=== PATIENT | female | born 1995 | race Two or more races ===

== ENCOUNTER 2019-07-31 08:39 | Emergency (ER) | payer MEDICAID ==
--- NOTE | 2019-07-31 10:00 | EDM.PDOC ---
ED HPI GENERAL MEDICAL PROBLEM - General Stated Complaint: L SHOULDER PAIN Time Seen by Provider: 07/31/19 08:55 Source of Information: Reports: Patient History Limitations: Reports: No Limitations - History of Present Illness INITIAL COMMENTS - FREE TEXT/NARRATIVE: Patient presented to the ED because of left shoulder pain. 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 The pain is sharp 6/10 and is worse with movements. Left Shoulder Pain Score (Numeric/FACES): 7 - Related Data Allergies Allergy/AdvReac Type Severity Reaction Status Date / Time No Known Allergies Allergy Verified 07/31/19 17:11 Home Meds: Home Meds Cyclobenzaprine [Flexeril] 10 mg PO TID PRN #20 tab 07/31/19 [Rx] Ibuprofen 800 mg PO TID PRN #30 tablet 07/31/19 [Rx] Review of Systems - Review of Systems Review Of Systems: See Below Constitutional: Reports: No Symptoms Eyes: Reports: No Symptoms Ears: Reports: No Symptoms Nose: Reports: No Symptoms Mouth/Throat: Reports: No Symptoms Respiratory: Reports: No Symptoms Cardiovascular: Reports: No Symptoms GI/Abdominal: Reports: No Symptoms Genitourinary: Reports: No Symptoms Musculoskeletal: Reports: Shoulder Pain, Arm Pain Skin: Reports: No Symptoms Neurological: Reports: No Symptoms ED EXAM, GENERAL - Physical Exam Exam: See Below Exam Limited By: No Limitations General Appearance: Alert, No Apparent Distress Ears: Normal External Exam, Normal Canal Nose: Normal Inspection, Normal Mucosa, Nasal Flaring Throat/Mouth: Normal Lips Head: Atraumatic, Normocephalic Neck: Normal Inspection, Supple, Non-Tender Respiratory/Chest: No Respiratory Distress, Lungs Clear, Normal Breath Sounds, No Accessory Muscle Use, Chest Non-Tender Cardiovascular: Normal Peripheral Pulses, Regular Rate, Rhythm, No Edema, No Gallop GI/Abdominal: Normal Bowel Sounds, Soft, Non-Tender, No Organomegaly, No Distention, No Abnormal Bruit, No Mass, Pelvis Stable Rectal (Female) Exam: Normal Exam Back Exam: Normal Inspection, Full Range of Motion Extremities: Normal Inspection, Other (tenderness left shoulder,AC jont and trapezius muscle area) Neurological: Alert, Oriented, CN II-XII Intact, Normal Cognition, Normal Gait, Normal Reflexes, No Motor/Sensory Deficits Course - Vital Signs Text/Narrative:: reassurance Last Recorded V/S: Last Vital Signs Temp 36.7 C 07/31/19 08:39 Pulse 84 07/31/19 08:39 Resp 16 07/31/19 08:39 BP 100/60 07/31/19 08:39 Pulse Ox 98 07/31/19 08:39 Departure - Departure Time of Disposition: 09:55 Disposition: Home, Self-Care 01 Condition: Good Clinical Impression: Left shoulder strain - Discharge Information Prescriptions: Cyclobenzaprine [Flexeril] 10 mg PO TID PRN #20 tab PRN Reason: Spasms Ibuprofen 800 mg PO TID PRN #30 tablet PRN Reason: Pain Instructions: Shoulder Sprain Referrals: PCP,None [Primary Care Provider] - Forms: ED Department Discharge Additional Instructions: please read discharge instructions on shoulder sprain apply ice or heat whichever you prefertake ibuprofen 800 mg with tylenol 1000 mg every 8 hours as needed for pain flexeril 10 mg every 8 hours as needed for muscle spasm Take the ibuprofen,tylenol and flexeril all at the same time for better pain relief follow up[ as needed Sepsis Event Note - Focused Exam Date Exam was Performed: 08/01/19 Time Exam was Performed: 08:28
== END 2019-07-31 10:28 | disposition home or self-care (01) ==
LOC: FB.ED 08:39
DX: S46.912A Strain of unspecified muscle, fascia and tendon at shoulder and upper arm level, left arm, initial encounter (principal); Z79.899 Other long term (current) drug therapy; X50.0XXA Overexertion from strenuous movement or load, initial encounter; Y99.0 Civilian activity done for income or pay
CPT/HCPCS: 99283

== ENCOUNTER 2019-08-14 21:17 | Emergency (ER) | payer MEDICAID ==
--- NOTE | 2019-08-14 21:58 | EDM.PDOC ---
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 Her L shoulder pain has recovered, and she can perform all tasks essential to her job. She is taking no meds. - Related Data Allergies Allergy/AdvReac Type Severity Reaction Status Date / Time No Known Allergies Allergy Verified 07/31/19 17:11 Home Meds: Home Meds Cyclobenzaprine [Flexeril] 10 mg PO TID PRN #20 tab 07/31/19 [Rx] Ibuprofen 800 mg PO TID PRN #30 tablet 07/31/19 [Rx] Past Medical History - Past Health History Medical/Surgical History: Denies Medical/Surgical History Social & Family History - Family History Family Medical History: Noncontributory - Caffeine Use Caffeine Use: Reports: Energy Drinks, Soda Review of Systems - Review of Systems Review Of Systems: Comprehensive ROS is negative, except as noted in HPI. ED EXAM, GENERAL - Physical Exam Exam: See Below Exam Limited By: No Limitations General Appearance: Alert, WD/WN, No Apparent Distress Head: Normocephalic Neck: Normal Inspection, Supple, Non-Tender, Full Range of Motion Respiratory/Chest: Lungs Clear, Chest Non-Tender Cardiovascular: Regular Rate, Rhythm, No Murmur Back Exam: Normal Inspection Extremities: Normal Inspection, Normal Range of Motion, Non-Tender Neurological: Alert, Oriented, CN II-XII Intact, Normal Cognition, No Motor/ Sensory Deficits Psychiatric: Normal Affect, Normal Mood Skin Exam: Warm, Dry Lymphatic: No Adenopathy Course - Vital Signs Text/Narrative:: Normal RTW exam. Departure - Departure Time of Disposition: 21:50 Disposition: Home, Self-Care 01 Condition: Good Clinical Impression: Left shoulder strain Qualifiers: Encounter type: subsequent encounter Qualified Code(s): S46.912D - Strain of unspecified muscle, fascia and tendon at shoulder and upper arm level, left arm , subsequent encounter - Discharge Information *PRESCRIPTION DRUG MONITORING PROGRAM REVIEWED*: Not Applicable *COPY OF PRESCRIPTION DRUG MONITORING REPORT IN PATIENT LATISHA: Not Applicable Forms: ED Department Discharge - Problem List & Annotations (1) Left shoulder strain SNOMED Code(s): 038506644 Code(s): S46.912A - STRAIN UNSP MUSC/FASC/TEND AT SHLDR/UP ARM, LEFT ARM, INIT Status: Acute Current Visit: Yes Annotation/Comment:: Activity as tolerated. No meds required. Qualifiers: Encounter type: subsequent encounter Qualified Code(s): S46.912D - Strain of unspecified muscle, fascia and tendon at shoulder and upper arm level, left arm, subsequent encounter - Problem List Review Problem List Initiated/Reviewed/Updated: Yes - Assessment/Plan Plan: A note for work was provided.
== END 2019-08-14 22:00 | disposition home or self-care (01) ==
LOC: FB.ED 21:17
DX: S46.912D Strain of unspecified muscle, fascia and tendon at shoulder and upper arm level, left arm, subsequent encounter (principal); X58.XXXD Exposure to other specified factors, subsequent encounter; Y99.0 Civilian activity done for income or pay
CPT/HCPCS: 99283

== ENCOUNTER 2020-08-22 02:26 | Emergency (ER) | payer MEDICAID ==
[2020-08-22] MEDS ORDERED: Sodium Chloride 0.9% 10 ML Syringe FLUSH PRN (02:50)
[2020-08-22] MEDS ORDERED: Morphine 4 MG/ML VIAL IVPUSH ONE (02:52)
[2020-08-22] MEDS ORDERED: Ondansetron 4 MG/2 ML SDV IVPUSH ONE (02:53)
[2020-08-22] MEDS ORDERED: Ketorolac 30 MG/ML SDV IVPUSH ONE (02:55)
[2020-08-22] MEDS ORDERED: Sodium Chloride 0.9% 1,000 ML IV SCH (03:00)
[2020-08-22] MEDS ORDERED: Iopamidol 755 Mg/ML 100 ML Bottle IV ONE (03:27)
[2020-08-22] MEDS ORDERED: Potassium Chloride 20 MEQ Tab.ER PO ONE (03:55)
--- NOTE | 2020-08-22 03:55 | EDM.PDOC ---
ED HPI GENERAL MEDICAL PROBLEM - General Chief Complaint: Abdominal Pain Stated Complaint: ABDOMINAL PAIN Time Seen by Provider: 08/22/20 03:00 Source of Information: Reports: Patient History Limitations: Reports: No Limitations - History of Present Illness INITIAL COMMENTS - FREE TEXT/NARRATIVE: Patient presented to the ED because of abdominal pain which started at 0100. The pain is sharp and cramping, diffuse, 7/10 with associated nausea but no vomiting. There is no associated fever,chills, cough or cold symptoms. Denies any dysuria, urgency, or frequency. She laso c/o dental pain over the right lower wisdom tooth. She took Ibuprofen w/o relief. 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 - Infectious Disease History Infectious Disease History: Reports: Chicken Pox, Influenza - Past Surgical History HEENT Surgical History: Reports: None Dermatological Surgical History: Reports: None Social & Family History - Family History Family Medical History: No Pertinent Family History - Tobacco Use Tobacco Use Status *Q: Current Every Day Tobacco User Years of Tobacco use: 8 Packs/Tins Daily: 1 - Caffeine Use Caffeine Use: Reports: Coffee - Recreational Drug Use Recreational Drug Use: Yes Drug Use in Last 12 Months: No Recreational Drug Type: Reports: Methamphetamine Recreational Drug Use Frequency: Not Used In Over 6 Months Recreational Drug Last Use: 2019 ED ROS GENERAL - Review of Systems Review Of Systems: See Below Constitutional: Reports: No Symptoms HEENT: Reports: No Symptoms Respiratory: Reports: No Symptoms Cardiovascular: Reports: No Symptoms Endocrine: Reports: No Symptoms GI/Abdominal: Reports: Abdominal Pain : Reports: No Symptoms Musculoskeletal: Reports: No Symptoms Skin: Reports: No Symptoms Neurological: Reports: No Symptoms Psychiatric: Reports: No Symptoms ED EXAM, GI/ABD - Physical Exam Exam: See Below Exam Limited By: No Limitations General Appearance: Alert, No Apparent Distress Ears: Normal External Exam, Normal Canal Nose: Normal Inspection, Normal Mucosa Throat/Mouth: Other (dental cavity) Head: Atraumatic, Normocephalic Neck: Normal Inspection, Supple, Non-Tender, Full Range of Motion Respiratory/Chest: No Respiratory Distress, Lungs Clear, Normal Breath Sounds Cardiovascular: Normal Peripheral Pulses, Regular Rate, Rhythm, No Edema GI/Abdominal Exam: Normal Bowel Sounds, Soft, Other (diffusely tender, no rebound or guarding) Back Exam: Normal Inspection, Full Range of Motion Extremities: Normal Inspection, Normal Range of Motion Neurological: Alert, Oriented, CN II-XII Intact Course - Vital Signs Text/Narrative:: Labs/CT abd/pelvis result was discussed with patient NS 1 L bolus Zofran 4 mg IV x1 Klor con 40 meq po x1 Viscous lidocaine applied to rt lowe wisdom tooth Last Recorded V/S: Last Vital Signs Temp 36.4 C 08/22/20 02:26 Pulse 62 08/22/20 02:26 Resp 18 08/22/20 02:26 BP 112/74 08/22/20 02:26 Pulse Ox 100 08/22/20 02:26 - Orders/Labs/Meds Orders: Active Orders 24 hr Category Date Time Status Abdomen Pelvis w Cont [CT] Stat Exams 08/22/20 03:22 Taken Sodium Chloride 0.9% [Normal Saline] 1,000 ml Med 08/22/20 03:00 Active IV ASDIRECTED Sodium Chloride 0.9% [Saline Flush] Med 08/22/20 02:50 Active 10 ml FLUSH ASDIRECTED PRN Saline Lock Insert [OM.PC] Routine Oth 08/22/20 02:50 Ordered Medication Orders Sodium Chloride (Normal Saline) 1,000 mls @ 999 mls/hr IV ASDIRECTED CHELSIE Last Admin: 08/22/20 03:00 Dose: 999 mls/hr Documented by: BREE Sodium Chloride (Saline Flush) 10 ml FLUSH ASDIRECTED PRN PRN Reason: Keep Vein Open Last Admin: 08/22/20 03:05 Dose: 10 ml Documented by: BREE Labs: Laboratory Tests 08/22/20 08/22/20 08/22/20 Range/Units 02:50 02:50 02:50 WBC 9.5 (3.0-10.3) x10-3/uL RBC 4.39 (3.60-5.20) x10(6)uL Hgb 12.4 (11.4-15.5) g/dL Hct 38.3 (34.2-48.2) % MCV 87.3 (76.7-100.5) fL MCH 28.2 (23.9-33.9) pg MCHC 32.3 (31.9-34.8) g/dL RDW 13.2 (12.3-16.5) % Plt Count 284 (151-488) x10(3)uL MPV 7.4 (7.1-12.4) fL Neut % (Auto) 65.7 (30.8-76.2) % Lymph % (Auto) 25.6 (18.4-52.1) % [place] % (Auto) 6.4 (4.4-15.7) % Eos % (Auto) 1.9 (0.6-8.1) % Baso % (Auto) 0.4 (0.2-1.5) % Neut # (Auto) 6.3 (1.5-6.3) x10-3/uL Lymph # (Auto) 2.4 (1.0-4.4) x10-3/uL [place] # (Auto) 0.6 (0.3-1.0) x10-3/uL Eos # (Auto) 0.2 (0.0-0.8) x10-3/uL Baso # (Auto) 0.0 (0.0-0.1) x10-3/uL Sodium 140 (135-145) mmol/L Potassium 3.3 L (3.5-5.3) mmol/L Chloride 103 (100-110) mmol/L Carbon Dioxide 27 (21-32) mmol/L BUN 12 (7-18) mg/dL Creatinine 0.9 (0.55-1.02) mg/dL Est Cr Clr Drug Dosing 74.92 mL/min Estimated GFR (MDRD) > 60 (>60) BUN/Creatinine Ratio 13.3 (9-20) Glucose 92 (80-116) mg/dL Calcium 7.9 L (8.6-10.2) mg/dL Total Bilirubin 0.3 (0.1-1.3) mg/dL AST 13 (5-25) IU/L ALT 14 (12-36) U/L Alkaline Phosphatase 99 (56-112) IU/L Total Protein 6.8 (6.0-8.0) g/dL Albumin 3.7 (3.5-5.2) g/dL Globulin 3.1 g/dL Albumin/Globulin Ratio 1.2 Amylase 36 (25-115) U/L Lipase 88 (73-393) U/L Urine Color (YELLOW) Urine Appearance (CLEAR) Urine pH (5.0-6.5) Ur Specific [place] (1.010-1.025) Urine Protein (NEGATIVE) mg/dL Urine Glucose (UA) (NORMAL) mg/dL Urine Ketones (NEGATIVE) mg/dL Urine Occult Blood (NEGATIVE) Urine Nitrite (NEGATIVE) Urine Bilirubin (NEGATIVE) Urine Urobilinogen (NEGATIVE) mg/dL Ur Leukocyte Esterase (NEGATIVE) Urine RBC (0-5) Urine WBC (0-5) Ur Squamous Epith Cells (NS,R,O) Urine Bacteria (NS) Urine Mucus (NS) Urine HCG, Qual (NEGATIVE) 08/22/20 08/22/20 Range/Units 03:00 03:00 WBC (3.0-10.3) x10-3/uL RBC (3.60-5.20) x10(6)uL Hgb (11.4-15.5) g/dL Hct (34.2-48.2) % MCV (76.7-100.5) fL MCH (23.9-33.9) pg MCHC (31.9-34.8) g/dL RDW (12.3-16.5) % Plt Count (151-488) x10(3)uL MPV (7.1-12.4) fL Neut % (Auto) (30.8-76.2) % Lymph % (Auto) (18.4-52.1) % [place] % (Auto) (4.4-15.7) % Eos % (Auto) (0.6-8.1) % Baso % (Auto) (0.2-1.5) % Neut # (Auto) (1.5-6.3) x10-3/uL Lymph # (Auto) (1.0-4.4) x10-3/uL [place] # (Auto) (0.3-1.0) x10-3/uL Eos # (Auto) (0.0-0.8) x10-3/uL Baso # (Auto) (0.0-0.1) x10-3/uL Sodium (135-145) mmol/L Potassium (3.5-5.3) mmol/L Chloride (100-110) mmol/L Carbon Dioxide (21-32) mmol/L BUN (7-18) mg/dL Creatinine (0.55-1.02) mg/dL Est Cr Clr Drug Dosing mL/min Estimated GFR (MDRD) (>60) BUN/Creatinine Ratio (9-20) Glucose (80-116) mg/dL Calcium (8.6-10.2) mg/dL Total Bilirubin (0.1-1.3) mg/dL AST (5-25) IU/L ALT (12-36) U/L Alkaline Phosphatase (56-112) IU/L Total Protein (6.0-8.0) g/dL Albumin (3.5-5.2) g/dL Globulin g/dL Albumin/Globulin Ratio Amylase (25-115) U/L Lipase (73-393) U/L Urine Color Yellow (YELLOW) Urine Appearance Slightly cloudy (CLEAR) Urine pH 7.0 H (5.0-6.5) Ur Specific [place] 1.015 (1.010-1.025) Urine Protein Negative (NEGATIVE) mg/dL Urine Glucose (UA) Normal (NORMAL) mg/dL Urine Ketones Negative (NEGATIVE) mg/dL Urine Occult Blood Negative (NEGATIVE) Urine Nitrite Negative (NEGATIVE) Urine Bilirubin Negative (NEGATIVE) Urine Urobilinogen Normal (NEGATIVE) mg/dL Ur Leukocyte Esterase Negative (NEGATIVE) Urine RBC 0-5 (0-5) Urine WBC 0-5 (0-5) Ur Squamous Epith Cells Few H (NS,R,O) Urine Bacteria Few H (NS) Urine Mucus Few H (NS) Urine HCG, Qual Negative (NEGATIVE) Meds: Medications Generic Name Dose Route Start Last Admin Trade Name Freq PRN Reason Stop Dose Admin Sodium Chloride 1,000 mls @ 999 mls/hr 08/22/20 03:00 08/22/20 03:00 Normal Saline IV 999 mls/hr ASDIRECTED CHELSIE Administration Sodium Chloride 10 ml 08/22/20 02:50 08/22/20 03:05 Saline Flush FLUSH 10 ml ASDIRECTED PRN Administration Keep Vein Open Discontinued Medications Generic Name Dose Route Start Last Admin Trade Name Gary PRN Reason Stop Dose Admin Iopamidol 100 ml 08/22/20 03:27 08/22/20 03:35 Isovue-370 (76%) IV 08/22/20 03:28 77 ml . DIRECTED ONE Administration Ketorolac Tromethamine 30 mg 08/22/20 02:55 08/22/20 03:11 Toradol IVPUSH 08/22/20 02:56 30 mg ONETIME ONE Administration Lidocaine HCl 15 ml 08/22/20 04:04 08/22/20 04:07 Xylocaine 2% Viscous PO 08/22/20 04:05 15 ml ONETIME ONE Administration Morphine Sulfate 4 mg 08/22/20 02:52 08/22/20 03:07 Morphine IVPUSH 08/22/20 02:53 Not Given ONETIME ONE Ondansetron HCl 4 mg 08/22/20 02:53 08/22/20 03:06 Zofran IVPUSH 08/22/20 02:54 4 mg ONETIME ONE Administration Potassium Chloride 40 meq 08/22/20 03:55 08/22/20 04:01 Klor-Con M20 PO 08/22/20 03:56 40 meq ONETIME ONE Administration Departure - Departure Time of Disposition: 05:00 Disposition: Home, Self-Care 01 Condition: Good Clinical Impression: Abdominal pain, Hypokalemia, Chronic dental pain - Discharge Information Instructions: Hypokalemia, Abdominal Pain, Adult, [id number], Benzocaine mouth gel, ointment, solution, or dental paste Referrals: PCP,None [Primary Care Provider] - Forms: ED Department Discharge Additional Instructions: Please read discharge instructions on abdominal pain Take ibuprofen 800 mg with tylenol 1000 mg every 8 hours as needed for pain. Take these medicines with food because they can cause an upset stomach. Apply the viscous lidocaine for pain that you can't tolerate Follow up with your dentist Sepsis Event Note (ED) - Evaluation Sepsis Screening Result: No Definite Risk - Focused Exam Vital Signs: Vital Signs Temp Pulse Resp BP Pulse Ox 08/22/20 02:26 36.4 C 62 18 112/74 100 - My Orders Last 24 Hours: My Active Orders 08/22/20 02:50 Sodium Chloride 0.9% [Saline Flush] 10 ml FLUSH ASDIRECTED PRN Saline Lock Insert [OM.PC] Routine 08/22/20 03:00 Sodium Chloride 0.9% [Normal Saline] 1,000 ml IV ASDIRECTED 08/22/20 03:22 Abdomen Pelvis w Cont [CT] Stat - Assessment/Plan Last 24 Hours: My Active Orders 08/22/20 02:50 Sodium Chloride 0.9% [Saline Flush] 10 ml FLUSH ASDIRECTED PRN Saline Lock Insert [OM.PC] Routine 08/22/20 03:00 Sodium Chloride 0.9% [Normal Saline] 1,000 ml IV ASDIRECTED 08/22/20 03:22 Abdomen Pelvis w Cont [CT] Stat
[2020-08-22] MEDS ORDERED: Lidocaine 2% Viscous Solution 15 ML Cup PO ONE (04:04)
== END 2020-08-22 05:29 | disposition home or self-care (01) ==
LOC: FB.ED 02:26
DX: R10.84 Generalized abdominal pain (principal); E87.6 Hypokalemia; K08.89 Other specified disorders of teeth and supporting structures; G89.29 Other chronic pain; F17.210 Nicotine dependence, cigarettes, uncomplicated
CPT/HCPCS: 36415; 74177; 80053; 81001; 81025; 82150; 83690; 85025; 96374; 96375; 99284; 99284-25; A9270-GY; J1885; J2405; J7030; Q9967

== ENCOUNTER 2020-08-26 02:04 | Emergency (ER) | payer MEDICAID ==
[2020-08-26] MEDS ORDERED: Acetaminophen 500 MG Tab PO ONE (02:52)
[2020-08-26] MEDS ORDERED: Amoxicillin 500 MG Cap PO ONE (02:53)
[2020-08-26] MEDS ORDERED: Lidocaine 2% Viscous Solution 15 ML Cup PO ONE (02:53)
--- NOTE | 2020-08-26 03:00 | EDM.PDOC ---
ED HPI GENERAL MEDICAL PROBLEM - General Chief Complaint: ENT Problem Stated Complaint: TOOTH PAIN Time Seen by Provider: 08/26/20 02:25 Source of Information: Reports: Patient History Limitations: Reports: No Limitations - History of Present Illness INITIAL COMMENTS - FREE TEXT/NARRATIVE: c/o dental pain pt seen in ED 4d ago for sharp abd pain x 4h, w/u showed 1.8 cm L ovarian cyst, that pain subsided pt saw Radha Boyce the next day and was given ketorolac pt also has had dental pain x 2m, 4d ago she was given 2% viscous lido from the ED pt took ketorolac at 8p last night, and ibuprofen 200 mg 6 tabs at 1a, still has pain in the same tooth on the L for the past 2m not had dental pain previously, not on an antbx for the pain, not been seen for the tooth pain except for 4d ago when she came to ED with abd pain works at [employer], working from 3p-10p today h/o meth use in past right side lower tooth Pain Score (Numeric/FACES): 10 - Related Data Allergies Allergy/AdvReac Type Severity Reaction Status Date / Time No Known Allergies Allergy Verified 08/22/20 02:32 Home Meds: Home Meds Cyclobenzaprine [Flexeril] 10 mg PO TID PRN #20 tab 07/31/19 [Rx] Ibuprofen 800 mg PO TID PRN #30 tablet 07/31/19 [Rx] Amoxicillin 500 mg PO TID #21 tab 08/26/20 [Rx] Lidocaine 2% [Xylocaine 2% Viscous] 15 ml PO ASDIRECTED #1 cup 08/26/20 [Rx] Past Medical History - Past Health History Medical/Surgical History: Denies Medical/Surgical History HEENT History: Reports: Impaired Vision, Other (See Below) Other HEENT History: sore right upper molar tooth. 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 - Infectious Disease History Infectious Disease History: Reports: Chicken Pox, Influenza - Past Surgical History HEENT Surgical History: Reports: None Dermatological Surgical History: Reports: None Social & Family History - Family History Family Medical History: No Pertinent Family History - Tobacco Use Tobacco Use Status *Q: Current Every Day Tobacco User Years of Tobacco use: 8 Packs/Tins Daily: 1 - Caffeine Use Caffeine Use: Reports: Coffee ED ROS ENT - Review of Systems Review Of Systems: See Below Constitutional: Reports: No Symptoms HEENT: Reports: Dental Pain Respiratory: Reports: No Symptoms Endocrine: Reports: No Symptoms GI/Abdominal: Reports: No Symptoms : Reports: No Symptoms Musculoskeletal: Reports: No Symptoms Skin: Reports: No Symptoms Neurological: Reports: No Symptoms Psychiatric: Reports: No Symptoms Hematologic/Lymphatic: Reports: No Symptoms Immunologic: Reports: No Symptoms ED EXAM, ENT - Physical Exam Exam: See Below Exam Limited By: No Limitations General Appearance: Alert, WD/WN, Mild Distress Nose: Normal Inspection, Normal Mucousa, No Blood Mouth/Throat: Other (tooth #32 surgically absent, tooth #31 with a large central cavity on biting surface and mildly tender to palp, gingiva not red/swell, cheeck no swell, no LNs, only large ryan observed) Head: Atraumatic, Normocephalic Neck: Normal Inspection, Supple, Non-Tender, Full Range of Motion. No: Lymphadenopathy (R), Lymphadenopathy (L) Respiratory/Chest: No Respiratory Distress Cardiovascular: Regular Rate, Rhythm Course - Vital Signs Last Recorded V/S: Last Vital Signs Temp 36.7 C 08/26/20 02:04 Pulse 76 08/26/20 02:04 Resp 16 08/26/20 02:04 BP 103/72 08/26/20 02:04 Pulse Ox 99 08/26/20 02:04 - Orders/Labs/Meds Orders: Active Orders 24 hr Category Date Time Status Acetaminophen [Tylenol Extra Strength] Med 08/26/20 02:52 Once 1,000 mg PO ONETIME ONE Amoxicillin [Amoxil] Med 08/26/20 02:53 Once 1,000 mg PO ONETIME ONE Lidocaine 2% [Xylocaine 2% Viscous] Med 08/26/20 02:53 Once 15 ml PO ONETIME ONE - Re-Assessments/Exams Free Text/Narrative Re-Assessment/Exam: 08/26/20 03:00 should respond well to antbx, will need to see a dentist Departure - Departure Time of Disposition: 03:02 Disposition: Home, Self-Care 01 Condition: Good Clinical Impression: Pain due to dental caries, Dental abscess - Discharge Information *PRESCRIPTION DRUG MONITORING PROGRAM REVIEWED*: Yes *COPY OF PRESCRIPTION DRUG MONITORING REPORT IN PATIENT LATISHA: Not Applicable Prescriptions: Amoxicillin 500 mg PO TID #21 tab Lidocaine 2% [Xylocaine 2% Viscous] 15 ml PO ASDIRECTED #1 cup Instructions: Dental Abscess Additional Instructions: For pain, take either ketorolac 10 mg 1 tab or ibuprofen 200 mg 3 tabs 4 times a day for 2 days. Take one or the other, not both. For pain, also take acetaminophen 500 mg 2 tabs 2 tabs 4 times a day for 2 days. For infection and swelling, take amoxicillin 500 mg 1 tab 3 times a day for 7 days. For pain, put a thin layer of 2% viscous lidocaine on a cotton ball and bite down every hour as needed. For pain, put ice back on jaw for 10 minutes every hour as needed. For pain, use cold soft food (jello, yogurt, popsicles). Chew on the left side of the mouth. See a dentist as soon as possible. Sepsis Event Note (ED) - Evaluation Sepsis Screening Result: No Definite Risk - Focused Exam Vital Signs: Vital Signs Temp Pulse Resp BP Pulse Ox 08/26/20 02:04 36.7 C 76 16 103/72 99 - My Orders Last 24 Hours: My Active Orders 08/26/20 02:52 Acetaminophen [Tylenol Extra Strength] 1,000 mg PO ONETIME ONE 08/26/20 02:53 Amoxicillin [Amoxil] 1,000 mg PO ONETIME ONE Lidocaine 2% [Xylocaine 2% Viscous] 15 ml PO ONETIME ONE - Assessment/Plan Last 24 Hours: My Active Orders 08/26/20 02:52 Acetaminophen [Tylenol Extra Strength] 1,000 mg PO ONETIME ONE 08/26/20 02:53 Amoxicillin [Amoxil] 1,000 mg PO ONETIME ONE Lidocaine 2% [Xylocaine 2% Viscous] 15 ml PO ONETIME ONE
== END 2020-08-26 03:18 | disposition home or self-care (01) ==
LOC: FB.ED 02:04
DX: K04.7 Periapical abscess without sinus (principal); K02.9 Dental caries, unspecified; F17.210 Nicotine dependence, cigarettes, uncomplicated
CPT/HCPCS: 99282; 99283; A9270

== ENCOUNTER 2020-09-08 01:17 | Emergency (ER) | payer MEDICAID ==
--- NOTE | 2020-09-08 01:40 | EDM.PDOC ---
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 Denies vaginal discharge. Onset Date: 09/07/20 Location: Reports: Pelvis Quality: Reports: Other (burning) Severity: Mild Vaginal Pain Score (Numeric/FACES): 2 - Related Data Allergies Allergy/AdvReac Type Severity Reaction Status Date / Time No Known Allergies Allergy Verified 08/22/20 02:32 Home Meds: Home Meds Cyclobenzaprine [Flexeril] 10 mg PO TID PRN #20 tab 07/31/19 [Rx] Ibuprofen 800 mg PO TID PRN #30 tablet 07/31/19 [Rx] Amoxicillin 500 mg PO TID #21 tab 08/26/20 [Rx] Lidocaine 2% [Xylocaine 2% Viscous] 15 ml PO ASDIRECTED #1 cup 08/26/20 [Rx] Nystatin/Triamcinolone Crm [Mycolog Crm] 1 gm TOP BID 7 Days #30 g 09/08/20 [Rx] Past Medical History HEENT History: Reports: Impaired Vision, Other (See Below) Other HEENT History: sore right upper molar tooth. 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 - Infectious Disease History Infectious Disease History: Reports: Chicken Pox, Influenza - Past Surgical History HEENT Surgical History: Reports: None Dermatological Surgical History: Reports: None Social & Family History - Family History Family Medical History: No Pertinent Family History - Tobacco Use Tobacco Use Status *Q: Current Every Day Tobacco User Years of Tobacco use: 8 Packs/Tins Daily: 0.5 - Caffeine Use Caffeine Use: Reports: Soda - Recreational Drug Use Recreational Drug Use: Yes Drug Use in Last 12 Months: No Recreational Drug Type: Reports: Methamphetamine ED ROS GENERAL - Review of Systems Review Of Systems: Comprehensive ROS is negative, except as noted in HPI. ED EXAM, GENERAL - Physical Exam Exam: See Below Exam Limited By: No Limitations General Appearance: Alert, WD/WN, No Apparent Distress Throat/Mouth: No Airway Compromise Head: Atraumatic, Normocephalic Neck: Full Range of Motion Respiratory/Chest: No Respiratory Distress GI/Abdominal: No Distention (Female) Exam: Other (Mild erythema to bilateral labia majora, no swelling, no lesions, no vaginal discharge noted) Extremities: Normal Range of Motion Neurological: Alert, Normal Cognition Skin Exam: Warm, Dry, Intact Course - Vital Signs Last Recorded V/S: Last Vital Signs Temp 36.8 C 09/08/20 01:25 Pulse 76 09/08/20 01:25 Resp 18 09/08/20 01:25 BP 110/58 L 09/08/20 01:25 Pulse Ox 100 09/08/20 01:25 - Orders/Labs/Meds Orders: Active Orders 24 hr Category Date Time Status Nystatin/Triamcinolone Crm [Mycolog Crm] Med 09/08/20 01:34 Ordered 1 gm TOP BID Medication Orders Nystatin/Triamcinolone Acetonide (Mycolog Crm) 1 gm TOP BID CHELSIE Meds: Medications Generic Name Dose Route Start Last Admin Trade Name Freq PRN Reason Stop Dose Admin Nystatin/Triamcinolone Acetonide 1 gm 09/08/20 01:34 Mycolog Crm TOP BID CHELSIE Departure - Departure Time of Disposition: 01:39 Disposition: Home, Self-Care 01 Clinical Impression: Dermatitis - Discharge Information *PRESCRIPTION DRUG MONITORING PROGRAM REVIEWED*: No *COPY OF PRESCRIPTION DRUG MONITORING REPORT IN PATIENT LATISHA: Not Applicable Prescriptions: Nystatin/Triamcinolone Crm [Mycolog Crm] 1 gm TOP BID 7 Days #30 g Instructions: Rash, Adult, [id number] Additional Instructions: Fill the Mycolog cream prescription and apply twice a day. Follow up with your primary physician in 2-3 days if symptoms don't improve. Sepsis Event Note (ED) - Evaluation Sepsis Screening Result: No Definite Risk - Focused Exam Vital Signs: Vital Signs Temp Pulse Resp BP Pulse Ox 09/08/20 01:25 36.8 C 76 18 110/58 L 100 - My Orders Last 24 Hours: My Active Orders 09/08/20 01:34 Nystatin/Triamcinolone Crm [Mycolog Crm] 1 gm TOP BID - Assessment/Plan Last 24 Hours: My Active Orders 09/08/20 01:34 Nystatin/Triamcinolone Crm [Mycolog Crm] 1 gm TOP BID
== END 2020-09-08 01:49 | disposition home or self-care (01) ==
LOC: FB.ED 01:17
DX: L30.9 Dermatitis, unspecified (principal); Z72.0 Tobacco use
CPT/HCPCS: 99283; A9270-GY

== ENCOUNTER 2020-09-19 00:04 | Emergency (ER) | payer MEDICAID, OTHER ==
[2020-09-19] MEDS ORDERED: Acetaminophen/HYDROcodone 325-5 MG Tab PO STA (00:26)
[2020-09-19] MEDS ORDERED: Ketorolac 60 MG/2 ML SDV IM STA (00:26)
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
== END 2020-09-19 02:00 | disposition home or self-care (01) ==
LOC: FB.ED 00:04
DX: S46.911A Strain of unspecified muscle, fascia and tendon at shoulder and upper arm level, right arm, initial encounter (principal); V48.6XXA Car passenger injured in noncollision transport accident in traffic accident, initial encounter; Y92.410 Unspecified street and highway as the place of occurrence of the external cause
CPT/HCPCS: 73070; 73090; 73130; 96372; 99284; A9270; J1885; 99283

== ENCOUNTER 2020-12-03 16:01 | Emergency (ER) | payer MEDICAID ==
[2020-12-03] MEDS ORDERED: Ondansetron 4 MG Tab.DIS PO ONE (16:02)
--- NOTE | 2020-12-03 16:46 | EDM.PDOC ---
ED HPI GENERAL MEDICAL PROBLEM - General Stated Complaint: VOMITING Time Seen by Provider: 12/03/20 16:40 Source of Information: Reports: Patient History Limitations: Reports: No Limitations - History of Present Illness INITIAL COMMENTS - FREE TEXT/NARRATIVE: 25-year-old female who reports beginning at approximately 4 AM today she developed diarrhea and some left-sided abdominal pain and flank pain. She also reports that she developed vomiting at about 8:52 AM following this and has had vomiting 3. She has had diarrhea 6 or 7. She continues with the abdominal pain and has generalized malaise with feeling hot. She has had no measured fever. She has had no chills. She continues to feel nauseated. The pain in her left abdomen and flank is rated by her as an 8/10. It seems to wax and wane and it is worse with palpation and with movement. He had no appetite today. She has had a little PO intake. She has had no cough or nasal congestion. No sore throat. She does feel somewhat weak and dizzy. It is worse with sitting and standing. She is on oral contraceptive pills but is late for her menstrual period. There are no other associated signs or symptoms. There are no other modifying factors. Onset: Today (Or a.m.) Duration: Getting Worse Location: Reports: Abdomen (Left lower abdomen and flank) Quality: Reports: Ache, Sharp Severity: Moderate (to there) Improves with: Reports: Rest Worsens with: Reports: Other (Palpation.), Movement Context: Reports: Other (Above.) Associated Symptoms: Reports: Loss of Appetite, Nausea/Vomiting, Weakness Treatments DISABILITY ADVOCATE: Reports: Other (see below) (Nothing.) Abdominal Pain Score (Numeric/FACES): 8 - Related Data Allergies Allergy/AdvReac Type Severity Reaction Status Date / Time No Known Allergies Allergy Verified 12/03/20 19:26 Home Meds: Home Meds Desogestrel-Ethinyl Estradiol [Isibloom 28 Day Tablet] 1 each PO DAILY 12/03/20 [History] Ondansetron [Zofran ODT] 4 mg PO Q6H PRN #8 tab.dis 12/03/20 [Rx] Sulfamethoxazole/Trimethoprim [Bactrim Ds Tablet] 1 each PO BID 10 Days #20 tablet 12/03/20 [Rx] Past Medical History HEENT History: Reports: Impaired Vision Psychiatric History: Reports: Addiction 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 - Infectious Disease History Infectious Disease History: Reports: Chicken Pox, Influenza - Past Surgical History Other Surgical History Comment: No previous surgeries. Social & Family History - Tobacco Use Tobacco Use Status *Q: Current Every Day Tobacco User - Caffeine Use Caffeine Use: Reports: Coffee, Energy Drinks, Soda, Tea - Alcohol Use Alcohol Use History: Yes Alcohol Use Frequency: Weekly - Living Situation & Occupation Occupation: Employed (Works at [employer]) Social History Comment: No sick contacts. ED ROS GENERAL - Review of Systems Review Of Systems: See Below Constitutional: Reports: Malaise, Weakness, Decreased Appetite HEENT: Reports: Other (Dry mouth.) Respiratory: Reports: No Symptoms Cardiovascular: Reports: No Symptoms GI/Abdominal: Reports: Abdominal Pain, Diarrhea, Nausea, Vomiting : Reports: Flank Pain (Left flank pain) Musculoskeletal: Reports: Back Pain (Mild left mid back pain) Skin: Reports: No Symptoms Neurological: Reports: No Symptoms Psychiatric: Reports: No Symptoms Hematologic/Lymphatic: Reports: No Symptoms Immunologic: Reports: No Symptoms ED EXAM, GENERAL - Physical Exam Exam: See Below Exam Limited By: No Limitations General Appearance: Alert, WD/WN, Moderate Distress (Appears in some pain.) Eye Exam: Bilateral Eye: EOMI, Normal Inspection (Sclerae are anicteric), PERRL Ears: Normal External Exam, Hearing Grossly Normal Ear Exam: Bilateral Ear: Auricle Normal Nose: Normal Inspection, Normal Mucosa, No Blood Throat/Mouth: Normal Lips, Normal Voice, No Airway Compromise, Other (Dry mucous membranes) Head: Atraumatic, Normocephalic Neck: Normal Inspection, Supple, Non-Tender, Full Range of Motion Respiratory/Chest: No Respiratory Distress, Lungs Clear, Normal Breath Sounds, No Accessory Muscle Use, Chest Non-Tender Cardiovascular: Normal Peripheral Pulses, No Murmur, Tachycardia Peripheral Pulses: 2+: Radial (L), Radial (R), Dorsalis Pedis (L), Dorsalis Pedis (R) GI/Abdominal: Normal Bowel Sounds, Soft, Tender (On the left lower quadrant, left flank area.) Back Exam: Normal Inspection, CVA Tenderness (L) Extremities: Normal Inspection, Normal Range of Motion, Non-Tender, No Pedal Edema, Normal Capillary Refill Neurological: Alert, Oriented, CN II-XII Intact, Normal Cognition, No Motor/Sensory Deficits Skin Exam: Warm, Dry, Intact, Normal Color, No Rash Course - Vital Signs Last Recorded V/S: Last Vital Signs Temp 37.3 C 12/03/20 19:37 Pulse 87 12/03/20 20:28 Resp 18 12/03/20 20:28 BP 120/55 L 12/03/20 20:28 Pulse Ox 100 12/03/20 20:28 - Orders/Labs/Meds Orders: Active Orders 24 hr Category Date Time Status CULTURE URINE [RM] Stat Lab 12/03/20 19:33 Ordered Sodium Chloride 0.9% [Normal Saline] 1,000 ml Med 12/03/20 17:00 Active IV ASDIRECTED Sodium Chloride 0.9% [Saline Flush] Med 12/03/20 16:55 Active 10 ml FLUSH ASDIRECTED PRN Peripheral IV Insertion Adult [OM.PC] Routine Oth 12/03/20 16:55 Ordered Medication Orders Sodium Chloride (Normal Saline) 1,000 mls @ 999 mls/hr IV ASDIRECTED CHELSIE Last Admin: 12/03/20 19:35 Dose: 999 mls/hr Documented by: WESLY Sodium Chloride (Sodium Chloride 0.9% 10 Ml Syringe) 10 ml FLUSH ASDIRECTED PRN PRN Reason: Keep Vein Open Last Admin: 12/03/20 17:07 Dose: 10 ml Documented by: BJORN Labs: Laboratory Tests 12/03/20 12/03/20 12/03/20 Range/Units 16:36 16:36 16:42 WBC (3.0-10.3) x10-3/uL RBC (3.60-5.20) x10(6)uL Hgb (11.4-15.5) g/dL Hct (34.2-48.2) % MCV (76.7-100.5) fL MCH (23.9-33.9) pg MCHC (31.9-34.8) g/dL RDW (12.3-16.5) % Plt Count (151-488) x10(3)uL MPV (7.1-12.4) fL Neut % (Auto) (30.8-76.2) % Lymph % (Auto) (18.4-52.1) % [place] % (Auto) (4.4-15.7) % Eos % (Auto) (0.6-8.1) % Baso % (Auto) (0.2-1.5) % Neut # (Auto) (1.5-6.3) x10-3/uL Lymph # (Auto) (1.0-4.4) x10-3/uL [place] # (Auto) (0.3-1.0) x10-3/uL Eos # (Auto) (0.0-0.8) x10-3/uL Baso # (Auto) (0.0-0.1) x10-3/uL Sodium (135-145) mmol/L Potassium (3.5-5.3) mmol/L Chloride (100-110) mmol/L Carbon Dioxide (21-32) mmol/L BUN (7-18) mg/dL Creatinine (0.55-1.02) mg/dL Est Cr Clr Drug Dosing Estimated GFR (MDRD) (>60) BUN/Creatinine Ratio (9-20) Glucose (80-116) mg/dL Calcium (8.6-10.2) mg/dL Magnesium (1.8-2.5) mg/dL Total Bilirubin (0.1-1.3) mg/dL AST (5-25) IU/L ALT (12-36) U/L Alkaline Phosphatase (56-112) IU/L C-Reactive Protein (0.5-0.9) mg/dL Total Protein (6.0-8.0) g/dL Albumin (3.5-5.2) g/dL Globulin g/dL Albumin/Globulin Ratio Lipase (73-393) U/L Urine Color [place] (YELLOW) Urine Appearance Clear (CLEAR) Urine pH 5.0 (5.0-6.5) Ur Specific [place] 1.020 (1.010-1.025) Urine Protein Negative (NEGATIVE) mg/dL Urine Glucose (UA) Normal (NORMAL) mg/dL Urine Ketones 15 H (NEGATIVE) mg/dL Urine Occult Blood Large H (NEGATIVE) Urine Nitrite Negative (NEGATIVE) Urine Bilirubin Small H (NEGATIVE) Urine Urobilinogen Normal (NEGATIVE) mg/dL Ur Leukocyte Esterase Small H (NEGATIVE) Urine RBC 30-40 H (0-5) Urine WBC 10-20 H (0-5) Ur Squamous Epith Cells Few H (NS,R,O) Urine Bacteria Moderate H (NS) Urine HCG, Qual Negative (NEGATIVE) SARS-CoV-2 RNA (DEYVI) Negative (NEGATIVE) 12/03/20 12/03/20 12/03/20 Range/Units 17:15 17:15 17:15 WBC 6.5 (3.0-10.3) x10-3/uL RBC 4.83 (3.60-5.20) x10(6)uL Hgb 14.2 (11.4-15.5) g/dL Hct 42.3 (34.2-48.2) % MCV 87.6 (76.7-100.5) fL MCH 29.4 (23.9-33.9) pg MCHC 33.6 (31.9-34.8) g/dL RDW 13.5 (12.3-16.5) % Plt Count 248 (151-488) x10(3)uL MPV 7.4 (7.1-12.4) fL Neut % (Auto) 81.3 H (30.8-76.2) % Lymph % (Auto) 8.3 L (18.4-52.1) % [place] % (Auto) 7.5 (4.4-15.7) % Eos % (Auto) 2.6 (0.6-8.1) % Baso % (Auto) 0.3 (0.2-1.5) % Neut # (Auto) 5.3 (1.5-6.3) x10-3/uL Lymph # (Auto) 0.5 L (1.0-4.4) x10-3/uL [place] # (Auto) 0.5 (0.3-1.0) x10-3/uL Eos # (Auto) 0.2 (0.0-0.8) x10-3/uL Baso # (Auto) 0.0 (0.0-0.1) x10-3/uL Sodium 139 (135-145) mmol/L Potassium 3.6 (3.5-5.3) mmol/L Chloride 103 (100-110) mmol/L Carbon Dioxide 22 (21-32) mmol/L BUN 12 (7-18) mg/dL Creatinine 0.8 (0.55-1.02) mg/dL Est Cr Clr Drug Dosing TNP Estimated GFR (MDRD) > 60 (>60) BUN/Creatinine Ratio 15.0 (9-20) Glucose 92 (80-116) mg/dL Calcium 8.3 L (8.6-10.2) mg/dL Magnesium 2.0 (1.8-2.5) mg/dL Total Bilirubin 0.7 (0.1-1.3) mg/dL AST 15 D (5-25) IU/L ALT 29 D (12-36) U/L Alkaline Phosphatase 91 (56-112) IU/L C-Reactive Protein 4.1 H* (0.5-0.9) mg/dL Total Protein 7.0 (6.0-8.0) g/dL Albumin 3.2 L (3.5-5.2) g/dL Globulin 3.8 g/dL Albumin/Globulin Ratio 0.8 Lipase 37 L (73-393) U/L Urine Color (YELLOW) Urine Appearance (CLEAR) Urine pH (5.0-6.5) Ur Specific [place] (1.010-1.025) Urine Protein (NEGATIVE) mg/dL Urine Glucose (UA) (NORMAL) mg/dL Urine Ketones (NEGATIVE) mg/dL Urine Occult Blood (NEGATIVE) Urine Nitrite (NEGATIVE) Urine Bilirubin (NEGATIVE) Urine Urobilinogen (NEGATIVE) mg/dL Ur Leukocyte Esterase (NEGATIVE) Urine RBC (0-5) Urine WBC (0-5) Ur Squamous Epith Cells (NS,R,O) Urine Bacteria (NS) Urine HCG, Qual (NEGATIVE) SARS-CoV-2 RNA (DEYVI) (NEGATIVE) Meds: Medications Generic Name Dose Route Start Last Admin Trade Name Freq PRN Reason Stop Dose Admin Sodium Chloride 1,000 mls @ 999 mls/hr 12/03/20 17:00 12/03/20 19:35 Normal Saline IV 999 mls/hr ASDIRECTED CHELSIE Administration Sodium Chloride 10 ml 12/03/20 16:55 12/03/20 17:07 Sodium Chloride 0.9% 10 Ml Syringe FLUSH 10 ml ASDIRECTED PRN Administration Keep Vein Open Discontinued Medications Generic Name Dose Route Start Last Admin Trade Name Freq PRN Reason Stop Dose Admin Ceftriaxone Sodium 1 gm 12/03/20 19:19 12/03/20 19:30 Ceftriaxone 1 Gm Vial IVPUSH 12/03/20 19:20 1 gm ONETIME ONE Administration Sodium Chloride 1,000 mls @ 999 mls/hr 12/03/20 16:58 12/03/20 17:06 Normal Saline IV 12/03/20 17:58 999 mls/hr .BOLUS ONE Administration Ondansetron HCl 4 mg 12/03/20 16:59 12/03/20 17:06 Ondansetron 4 Mg/2 Ml Sdv IVPUSH 12/03/20 17:00 4 mg ONETIME ONE Administration - Radiology Interpretation Free Text/Narrative:: CT scan of the abdomen and pelvis showed trace amount of fluid in the cul-de-sac but there is really no other abnormality per Dr. Price. Specifically, there was no evidence of bowel inflammation or urolithiasis. - Re-Assessments/Exams Free Text/Narrative Re-Assessment/Exam: 12/03/20 17:55: The patient's blood tests were reassuring. Her urinalysis did show evidence of RBCs and white blood cells. It did appear to be a good clean catch specimen. On exam, she still has pretty significant pain in her left lower abdomen and left flank and some mild left CVA tenderness. Her nausea is essentially gone. With the blood in her urine, I'm concerned about possible kidney stone and possibly some infectious etiology in her left abdomen. I will send her for CT scan of her abdomen and pelvis without IV contrast. So this with the patient and she is in agreement with this plan. 12/03/20 19:05: Dr. Price did call and discuss the results of the CT scan of the abdomen and pelvis. There is really no acute abnormality. I will reevaluate the patient. 12/03/20 19:15: The patient was sleeping when I came into the room. She awakens easily and still has some mild pain in her abdomen. She still has no nausea. She has received 1 L of normal saline as a bolus. She has also received Zofran as well. The patient's urine does appear consistent with an infection. I have ordered a urine culture on her urine and I will treat the patient with Rocephin 1 g IV and another liter of normal saline IV as a bolus. The patient will be discharged home with prescriptions for Zofran (I will send her with a take-home pack of Zofran as well) and Bactrim DS. I discussed all this with the patient and she feels comfortable with the plan for discharge. Departure - Departure Time of Disposition: 20:42 Disposition: Home, Self-Care 01 Condition: Good (Improved) Clinical Impression: Vomiting and diarrhea, Dehydration, moderate, Pyelonephritis - Discharge Information Prescriptions: Sulfamethoxazole/Trimethoprim [Bactrim Ds Tablet] 1 each PO BID 10 Days #20 tablet Ondansetron [Zofran ODT] 4 mg PO Q6H PRN #8 tab.dis PRN Reason: Nausea/Vomiting Instructions: Pyelonephritis, Adult, [id number], Nausea and Vomiting, Adult, [id number], Dehydration, Adult, [id number], Rehydration, Adult, Diarrhea, Adult, [id number] Referrals: Radha Boyce [employer] [Primary Care Provider] - Forms: ED Return to Work/School Form Additional Instructions: Your blood tests were all reassuringly normal. Your urine test did show some evidence of infection. The CT scan of your abdomen and pelvis showed no acute problem. You were dehydrated and we have corrected this somewhat with the IV fluids that we gave you. You also appear to have a kidney infection in we gave you a dose of antibiotics in your IV tonight and I sent a prescription to [facility] for Bactrim DS further treat your kidney infection. I also sent a prescription for Zofran to the pharmacy and gave you a take-home pack of Zofran that you can use for nausea and vomiting. You should take Tylenol and ibuprofen as needed for fever or pain. Increase your fluid intake. Rest. No work until 12/05/2020. Back to the emergency department for increasing pain, unrelenting vomiting, high fever, severe weakness or any other concerning signs or symptoms. Sepsis Event Note (ED) - Focused Exam Vital Signs: Vital Signs Temp Pulse Resp BP Pulse Ox 12/03/20 20:28 87 18 120/55 L 100 12/03/20 19:37 37.3 C 77 18 113/70 100 12/03/20 16:05 37.3 C 114 H 16 110/75 97 - My Orders Last 24 Hours: My Active Orders 12/03/20 16:55 Sodium Chloride 0.9% [Saline Flush] 10 ml FLUSH ASDIRECTED PRN Peripheral IV Insertion Adult [OM.PC] Routine 12/03/20 17:00 Sodium Chloride 0.9% [Normal Saline] 1,000 ml IV ASDIRECTED 12/03/20 19:33 CULTURE URINE [RM] Stat - Assessment/Plan Last 24 Hours: My Active Orders 12/03/20 16:55 Sodium Chloride 0.9% [Saline Flush] 10 ml FLUSH ASDIRECTED PRN Peripheral IV Insertion Adult [OM.PC] Routine 12/03/20 17:00 Sodium Chloride 0.9% [Normal Saline] 1,000 ml IV ASDIRECTED 12/03/20 19:33 CULTURE URINE [RM] Stat
[2020-12-03] MEDS ORDERED: Sodium Chloride 0.9% 10 ML Syringe FLUSH PRN (16:55)
[2020-12-03] MEDS ORDERED: Sodium Chloride 0.9% 1,000 ML IV ONE (16:58)
[2020-12-03] MEDS ORDERED: Ondansetron 4 MG/2 ML SDV IVPUSH ONE (16:59)
[2020-12-03] MEDS ORDERED: Sodium Chloride 0.9% 1,000 ML IV SCH (17:00)
[2020-12-03] MEDS ORDERED: cefTRIAXone 1 GM Vial IVPUSH ONE (19:19)
--- NOTE | 2020-12-03 19:23 | CT ---
INDICATION: Left lower quadrant and flank pain. Hematuria. CT ABDOMEN AND PELVIS WITHOUT CONTRAST: Spiral 2.5 mm axial sections were obtained through the abdomen and pelvis without contrast with sagittal and coronal reconstructions utilizing renal calculus protocol. Examination was obtained 12/03/20 and compared with previous examination of 08/22/20. Total exam DLP was 447.64 mGy-cm. No active infiltrate or effusion was seen. The heart is normal in size. No pericardial effusion was noted. The upper abdominal organs appeared normal. This includes the liver, gallbladder, adrenal glands, kidneys, spleen, and pancreas. No evidence of obstructive uropathy or renal calcinosis was identified. It is difficult to exclude pyelonephritis, however especially without IV contrast. No retroperitoneal mass was identified. There is a minimal amount of fluid in the posterior cul-de-sac which could represent physiologic cyst fluid from ovarian cyst rupture. This should be correlated clinically. Otherwise, no organomegaly, mass lesions or free fluid collections were identified in the abdomen or pelvis. The appendix appeared normal, visualized on coronal images 41-55. No evidence of free air or bowel obstruction was identified. No hernias were seen. IMPRESSION: 1. No evidence of obstructive uropathy or renal calcinosis. 2. No evidence of appendicitis or bowel obstruction. 3. Minimal amount of free fluid in the posterior cul-de-sac may be related physiologic ovarian cyst rupture - correlate clinically. Report was called to Dr. Gordillo at 1913 hours. [facility]
== END 2020-12-03 20:42 | disposition home or self-care (01) ==
LOC: FB.ED 16:01
DX: N12 Tubulo-interstitial nephritis, not specified as acute or chronic (principal); E86.0 Dehydration; R11.2 Nausea with vomiting, unspecified; R19.7 Diarrhea, unspecified; Z72.0 Tobacco use; Z20.822 Contact with and (suspected) exposure to COVID-19
CPT/HCPCS: 36415; 74176; 80053; 81001; 81025; 83690; 83735; 85025; 86140; 87086; 87635; 96374; 96375; 99284; A9270; J0696; J2405; J7030; U0002

== ENCOUNTER 2020-12-18 10:02 | Emergency (ER) | payer MEDICAID ==
--- NOTE | 2020-12-18 10:27 | EDM.PDOC ---
ED HPI GENERAL MEDICAL PROBLEM - General Chief Complaint: ENT Problem Stated Complaint: CONGESTION Time Seen by Provider: 12/18/20 10:15 Source of Information: Reports: Patient History Limitations: Reports: No Limitations - History of Present Illness INITIAL COMMENTS - FREE TEXT/NARRATIVE: Patient presented to the ED because of facial pain and nasal congestion for 1-2 days. there is no associated fever,chills, or coughing. - Related Data Allergies Allergy/AdvReac Type Severity Reaction Status Date / Time No Known Allergies Allergy Verified 12/18/20 10:13 Home Meds: Home Meds Desogestrel-Ethinyl Estradiol [Isibloom 28 Day Tablet] 1 each PO DAILY 12/03/20 [History] Ondansetron [Zofran ODT] 4 mg PO Q6H PRN #8 tab.dis 12/03/20 [Rx] Sulfamethoxazole/Trimethoprim [Bactrim Ds Tablet] 1 each PO BID 10 Days #20 tablet 12/03/20 [Rx] Amoxicillin 875 mg PO BID #20 tablet 12/18/20 [Rx] Past Medical History - Past Health History Medical/Surgical History: Denies Medical/Surgical History HEENT History: Reports: Impaired Vision Other HEENT History: sore right upper molar tooth. 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 - Infectious Disease History Infectious Disease History: Reports: Chicken Pox, Influenza - Past Surgical History Other Surgical History Comment: No previous surgeries. Social & Family History - Family History Family Medical History: No Pertinent Family History - Caffeine Use Caffeine Use: Reports: None - Living Situation & Occupation Occupation: Employed (Works at [employer]) ED ROS GENERAL - Review of Systems Review Of Systems: See Below Constitutional: Reports: No Symptoms HEENT: Reports: Other (nasal congestion) Respiratory: Reports: No Symptoms Cardiovascular: Reports: No Symptoms Endocrine: Reports: No Symptoms GI/Abdominal: Reports: No Symptoms : Reports: No Symptoms Musculoskeletal: Reports: No Symptoms Skin: Reports: No Symptoms Neurological: Reports: No Symptoms Psychiatric: Reports: No Symptoms Hematologic/Lymphatic: Reports: No Symptoms ED EXAM, GENERAL - Physical Exam Exam: See Below Exam Limited By: No Limitations General Appearance: Alert, No Apparent Distress Ears: Normal External Exam, Normal Canal Nose: Normal Inspection, Nasal Tenderness, Nasal Swelling Throat/Mouth: Normal Inspection, Normal Lips Head: Atraumatic, Normocephalic Neck: Normal Inspection, Supple, Non-Tender, Full Range of Motion Respiratory/Chest: No Respiratory Distress, Lungs Clear, Normal Breath Sounds, No Accessory Muscle Use, Chest Non-Tender Cardiovascular: Normal Peripheral Pulses, Regular Rate, Rhythm, No Edema, No JVD, No Murmur GI/Abdominal: Normal Bowel Sounds, Soft, Non-Tender Back Exam: Normal Inspection, Full Range of Motion Extremities: Normal Inspection, Normal Range of Motion, Non-Tender Course - Vital Signs Last Recorded V/S: Last Vital Signs Temp 36.4 C 12/18/20 10:14 Pulse 90 12/18/20 10:14 Resp 18 12/18/20 10:14 BP 105/64 12/18/20 10:14 Pulse Ox 99 12/18/20 10:14 Departure - Departure Time of Disposition: 10:30 Disposition: Home, Self-Care 01 Condition: Good Clinical Impression: Sinusitis - Discharge Information Prescriptions: Amoxicillin 875 mg PO BID #20 tablet Instructions: Sinusitis, Adult, [id number] Forms: ED Department Discharge Additional Instructions: Please read discharge instructions on sinusitis Increase oral fluids Amoxicillin 875 mg twice daily for 10 days Follow up as needed Sepsis Event Note (ED) - Evaluation Sepsis Screening Result: No Definite Risk - Focused Exam Vital Signs: Vital Signs Temp Pulse Resp BP Pulse Ox 12/18/20 10:14 36.4 C 90 18 105/64 99
== END 2020-12-18 10:33 | disposition home or self-care (01) ==
LOC: FB.ED 10:02
DX: J32.9 Chronic sinusitis, unspecified (principal)
CPT/HCPCS: 99283

== ENCOUNTER 2021-03-10 10:05 | Emergency (ER) | payer MEDICAID ==
--- NOTE | 2021-03-10 10:51 | EDM.PDOC ---
ED HPI GENERAL MEDICAL PROBLEM - General Stated Complaint: LEFT SIDED TOOTH INFECTION/PAIN Time Seen by Provider: 03/10/21 10:10 Source of Information: Reports: Patient History Limitations: Reports: No Limitations - History of Present Illness INITIAL COMMENTS - FREE TEXT/NARRATIVE: c/o L dental pain x 2d thinks she has infection, requests antbx working at [employer] today, came to ED has local dentist, was sent to oral surgeon in [place] to remove an infected tooth on the R side several months ago - Related Data Allergies Allergy/AdvReac Type Severity Reaction Status Date / Time No Known Allergies Allergy Verified 03/10/21 10:37 Home Meds: Home Meds Desogestrel-Ethinyl Estradiol [Isibloom 28 Day Tablet] 1 each PO DAILY 12/03/20 [History] Amoxicillin 500 mg PO TID #21 tab 03/10/21 [Rx] Past Medical History - Past Health History Medical/Surgical History: Denies Medical/Surgical History HEENT History: Reports: Impaired Vision Other HEENT History: sore right upper molar tooth. 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 - Infectious Disease History Infectious Disease History: Reports: Chicken Pox, Influenza - Past Surgical History Other Surgical History Comment: No previous surgeries. Social & Family History - Family History Family Medical History: No Pertinent Family History - Caffeine Use Caffeine Use: Reports: Coffee - Living Situation & Occupation Occupation: Employed (Works at [employer]) ED ROS ENT - Review of Systems Review Of Systems: See Below Constitutional: Reports: No Symptoms HEENT: Reports: Dental Pain Respiratory: Reports: No Symptoms Endocrine: Reports: No Symptoms GI/Abdominal: Reports: No Symptoms : Reports: No Symptoms Musculoskeletal: Reports: No Symptoms Skin: Reports: No Symptoms Neurological: Reports: No Symptoms Psychiatric: Reports: No Symptoms Hematologic/Lymphatic: Reports: No Symptoms Immunologic: Reports: No Symptoms ED EXAM, ENT - Physical Exam Exam: See Below Exam Limited By: No Limitations General Appearance: Alert, WD/WN Mouth/Throat: Other (mild swell of L check, no enlarged LNs, tooth #19 is under gingiva, tooth #18 shows a caries of ~10% of the tooth ) Course - Re-Assessments/Exams Free Text/Narrative Re-Assessment/Exam: 03/10/21 11:17 uncomplicated dental caries with abscess Departure - Departure Time of Disposition: 10:46 Disposition: Home, Self-Care 01 Condition: Good Clinical Impression: Pain due to dental caries, Dental abscess - Discharge Information *PRESCRIPTION DRUG MONITORING PROGRAM REVIEWED*: Not Applicable *COPY OF PRESCRIPTION DRUG MONITORING REPORT IN PATIENT LATISHA: Not Applicable Prescriptions: Amoxicillin 500 mg PO TID #21 tab Instructions: Dental Abscess Forms: ED Return to Work/School Form Additional Instructions: For infection, take amoxicillin 500 mg 1 tab 3 times a day for 7 days. For pain, take ibuprofen 200 mg 3 tabs 4 times a day for 2 days, longer if needed. See your dentist in the next week. May return to work tomorrow.
== END 2021-03-10 10:50 | disposition home or self-care (01) ==
LOC: FB.ED 10:05
DX: K04.7 Periapical abscess without sinus (principal); K02.9 Dental caries, unspecified
CPT/HCPCS: 99282

== ENCOUNTER 2021-05-05 09:14 | Emergency (ER) | payer MEDICAID ==
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
== END 2021-05-05 11:20 | disposition home or self-care (01) ==
LOC: FB.ED 09:14
DX: S93.401A Sprain of unspecified ligament of right ankle, initial encounter (principal); X50.1XXA Overexertion from prolonged static or awkward postures, initial encounter
CPT/HCPCS: 73630-RT; 99283-25

== ENCOUNTER 2021-07-05 23:35 | Emergency (ER) | payer MEDICAID ==
--- NOTE | 2021-07-06 00:40 | EDM.PDOC ---
ED HPI GENERAL MEDICAL PROBLEM - General Stated Complaint: SOB, COVID SYMPTOMS Time Seen by Provider: 07/06/21 00:39 Source of Information: Reports: Patient History Limitations: Reports: No Limitations - History of Present Illness INITIAL COMMENTS - FREE TEXT/NARRATIVE: Viv is a 25 old female with SOB,pain on breathing,and a cough. She is concerned about COVID-19 since jagdeep just tested positive. No fever,headache or myalgias. She is a smoker & not immunized against COVID - Related Data Allergies Allergy/AdvReac Type Severity Reaction Status Date / Time No Known Allergies Allergy Verified 07/06/21 18:37 Home Meds: Home Meds Desogestrel-Ethinyl Estradiol [Isibloom 28 Day Tablet] 1 each PO DAILY 12/03/20 [History] Past Medical History - Past Health History Medical/Surgical History: Denies Medical/Surgical History HEENT History: Reports: Impaired Vision Other HEENT History: sore right upper molar tooth. 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 - Infectious Disease History Infectious Disease History: Reports: Chicken Pox, Influenza - Past Surgical History Other Surgical History Comment: No previous surgeries. Social & Family History - Family History Family Medical History: No Pertinent Family History - Caffeine Use Caffeine Use: Reports: Soda - Living Situation & Occupation Occupation: Employed (Works at [employer]) ED ROS GENERAL - Review of Systems Review Of Systems: Comprehensive ROS is negative, except as noted in HPI. ED EXAM, GENERAL - Physical Exam Exam: See Below Exam Limited By: No Limitations General Appearance: Alert, WD/WN, No Apparent Distress Ears: Normal External Exam, Normal Canal, Hearing Grossly Normal, Normal TMs Ear Exam: Bilateral Ear: Auricle Normal, Canal Normal, TM normal Nose: Normal Inspection, Normal Mucosa, No Blood Throat/Mouth: Normal Inspection, Normal Lips, Normal Teeth, Normal Gums, Normal Oropharynx, Normal Voice, No Airway Compromise Head: Atraumatic, Normocephalic Neck: Normal Inspection, Supple, Non-Tender, Full Range of Motion Respiratory/Chest: No Respiratory Distress, Lungs Clear, Normal Breath Sounds, No Accessory Muscle Use, Chest Non-Tender Cardiovascular: Normal Peripheral Pulses, Regular Rate, Rhythm, No Edema, No Gallop, No JVD, No Murmur, No Rub GI/Abdominal: Normal Bowel Sounds, Soft, Non-Tender, No Organomegaly, No Distention, No Abnormal Bruit, No Mass (Female) Exam: Normal External Exam, Normal Speculum Exam, Normal Bimanual Ex am Rectal (Female) Exam: Normal Exam, Normal Rectal Tone Back Exam: Normal Inspection, Full Range of Motion, NT Extremities: Normal Inspection, Normal Range of Motion, Non-Tender, Normal Capillary Refill, No Pedal Edema Neurological: Alert, Oriented, CN II-XII Intact, Normal Cognition, Normal Gait, Normal Reflexes, No Motor/Sensory Deficits Psychiatric: Normal Affect, Normal Mood Skin Exam: Warm, Dry, Intact, Normal Color, No Rash Lymphatic: No Adenopathy Course - Vital Signs Last Recorded V/S: Last Vital Signs Temp 97.8 F 07/05/21 23:45 Pulse 78 07/05/21 23:45 Resp 18 07/05/21 23:45 BP 102/69 07/05/21 23:45 Pulse Ox 98 07/05/21 23:45 - Orders/Labs/Meds Labs: Laboratory Tests 07/06/21 Range/Units 00:01 SARS-CoV-2 RNA (DEYVI) Positive H (NEGATIVE) Departure - Departure Time of Disposition: 14:52 Disposition: Home, Self-Care 01 Clinical Impression: COVID-19, COVID - Discharge Information Instructions: COVID-19 Vaccine Information Referrals: Ed Sampson, [Primary Care Provider] - Forms: ED Department Discharge - Problem List & Annotations (1) COVID SNOMED Code(s): 567458559 Code(s): U07.1 - COVID-19 Status: Acute - Problem List Review Problem List Initiated/Reviewed/Updated: Yes - Assessment/Plan Plan: Supportive therapy
== END 2021-07-06 01:15 | disposition home or self-care (01) ==
LOC: FB.ED 23:35
DX: U07.1 COVID-19 (principal); F17.200 Nicotine dependence, unspecified, uncomplicated
CPT/HCPCS: 99284; U0002

== ENCOUNTER 2022-01-01 08:25 | Emergency (ER) | payer MEDICAID ==
[2022-01-01] MEDS ORDERED: Ondansetron 4 MG Tab.DIS PO ONE (08:34)
== END 2022-01-01 09:30 | disposition home or self-care (01) ==
LOC: FB.ED 08:25
DX: O21.9 Vomiting of pregnancy, unspecified (principal); Z3A.15 15 weeks gestation of pregnancy; Z79.899 Other long term (current) drug therapy
CPT/HCPCS: 99281; 99283; Q0162

== ENCOUNTER 2022-01-08 08:21 | Emergency (ER) | payer MEDICAID ==
[2022-01-08] MEDS ORDERED: Ondansetron 4 MG/2 ML SDV IVPUSH ONE ×2 (09:05→10:51)
[2022-01-08] MEDS ORDERED: Sodium Chloride 0.9% 1,000 ML IV ONE ×2 (09:05→10:51)
[2022-01-08] MEDS ORDERED: Potassium Chloride 20 MEQ Tab.ER PO ONE (10:52)
== END 2022-01-08 12:45 | disposition home or self-care (01) ==
LOC: FB.ED 08:21
DX: E86.0 Dehydration (principal); E71.32 Disorders of ketone metabolism; Z79.899 Other long term (current) drug therapy
CPT/HCPCS: 36415; 80053; 81001; 85025; 86140; 96361; 96374; 96376; 99284; A9270; J2405; J7030

== ENCOUNTER 2022-02-05 14:14 | Emergency (ER) | payer MEDICAID ==
[2022-02-05] MEDS ORDERED: Lactated Ringers 1,000 ML IV ONE (14:48)
== END 2022-02-05 16:43 | disposition home or self-care (01) ==
LOC: FB.ED 14:14
DX: O99.891 Other specified diseases and conditions complicating pregnancy (principal); R42 Dizziness and giddiness; O99.332 Smoking (tobacco) complicating pregnancy, second trimester; Z3A.22 22 weeks gestation of pregnancy
CPT/HCPCS: 96360; 99281; 99283-25; J7120

== ENCOUNTER 2022-03-05 20:57 | Emergency (ER) | payer MEDICAID ==
[2022-03-05] MEDS ORDERED: Amoxicillin/Clavulanate K 500-125 MG Tab PO ONE (20:58)
== END 2022-03-05 21:52 | disposition home or self-care (01) ==
LOC: FB.ED 20:57
DX: O9A.23 Injury, poisoning and certain other consequences of external causes complicating the puerperium (principal); S61.452A Open bite of left hand, initial encounter; Z3A.26 26 weeks gestation of pregnancy; W54.0XXA Bitten by dog, initial encounter
CPT/HCPCS: 12001; 99281; 99283; A9270-GY

== ENCOUNTER 2022-03-16 00:33 | Emergency (ER) | payer MEDICAID | END 2022-03-16 01:15 | disposition home or self-care (01) | LOC: FB.ED 00:33 | DX: O99.512 Diseases of the respiratory system complicating pregnancy, second trimester (principal); J06.9 Acute upper respiratory infection, unspecified; Z20.822 Contact with and (suspected) exposure to COVID-19; Z3A.28 28 weeks gestation of pregnancy | CPT/HCPCS: 99283; U0002 ==

== ENCOUNTER 2022-05-13 12:25 | Emergency (ER) | payer MEDICAID ==
[2022-05-13 14:28] LABS: ESTIMATED GFR 125 mL/min (>60)
== END 2022-05-13 15:07 | disposition home or self-care (01) ==
LOC: FB.ED 12:25
DX: O9A.23 Injury, poisoning and certain other consequences of external causes complicating the puerperium (principal); S39.012A Strain of muscle, fascia and tendon of lower back, initial encounter; O23.43 Unspecified infection of urinary tract in pregnancy, third trimester; N39.0 Urinary tract infection, site not specified; O99.283 Endocrine, nutritional and metabolic diseases complicating pregnancy, third trimester; E86.0 Dehydration; E88.09 Other disorders of plasma-protein metabolism, not elsewhere classified; O99.333 Smoking (tobacco) complicating pregnancy, third trimester; F17.210 Nicotine dependence, cigarettes, uncomplicated; Z3A.37 37 weeks gestation of pregnancy
CPT/HCPCS: 36415; 80053; 81001; 85025; 87086; 99284

== ENCOUNTER 2022-06-01 14:58 | Emergency (ER) | payer MEDICAID | END 2022-06-01 17:16 | LOC: FB.ED 14:58 | DX: O23.43 Unspecified infection of urinary tract in pregnancy, third trimester (principal); R10.84 Generalized abdominal pain; M54.50 Low back pain, unspecified; Z3A.39 39 weeks gestation of pregnancy; F17.210 Nicotine dependence, cigarettes, uncomplicated; Z79.899 Other long term (current) drug therapy; Z86.16 Personal history of COVID-19 | CPT/HCPCS: 81001; 87086; 99284 ==

== ENCOUNTER 2022-11-20 01:02 | Emergency (ER) | payer MEDICAID, OTHER ==
[2022-11-20] MEDS: Morphine 4 MG/ML VIAL IVPUSH ONE (01:18)
[2022-11-20] MEDS: Ondansetron 4 MG/2 ML SDV IVPUSH ONE (01:18)
[2022-11-20] MEDS: Sodium Chloride 0.9% 1,000 ML IV SCH (01:34)
[2022-11-20 01:43] LABS: ESTIMATED GFR 102 mL/min (>60)
[2022-11-20] MEDS: Iopamidol 755 Mg/ML 100 ML Bottle IV ONE (02:13)
== END 2022-11-20 03:03 | disposition home or self-care (01) ==
LOC: FB.ED 01:02
DX: N83.201 Unspecified ovarian cyst, right side (principal)
CPT/HCPCS: 36415; 74177; 80053; 81001; 82150; 83690; 85025; 96361; 96374; 96375; 99284; J2270; J2405; J7030; Q9967

== ENCOUNTER 2022-11-24 18:29 | Emergency (ER) | payer MEDICAID ==
[2022-11-24] MEDS ORDERED: Acetaminophen/HYDROcodone 325-5 MG Tab PO ONE (18:30)
[2022-11-24] MEDS ORDERED: Ketorolac 30 MG/ML SDV IM ONE (19:00)
== END 2022-11-24 20:30 | disposition home or self-care (01) ==
LOC: FB.ED 18:29
DX: N83.291 Other ovarian cyst, right side (principal); Z72.0 Tobacco use; Z86.16 Personal history of COVID-19
CPT/HCPCS: 36415; 81025; 85025; 96372; 99284; A9270; J1885

== ENCOUNTER 2022-11-27 01:11 | Emergency (ER) | payer MEDICAID ==
[2022-11-27] MEDS ORDERED: Acetaminophen/HYDROcodone 325-5 MG Tab PO ONE (01:12)
[2022-11-27] MEDS: hydrOXYzine HCl 50 MG/ML SDV IM ONE (01:50)
[2022-11-27] MEDS: Morphine 10 MG/ML SDV IM ONE (01:50)
[2022-11-27 02:09] LABS: ESTIMATED GFR 120 mL/min (>60)
== END 2022-11-27 03:19 | disposition home or self-care (01) ==
LOC: FB.ED 01:11
DX: K80.20 Calculus of gallbladder without cholecystitis without obstruction (principal)
CPT/HCPCS: 36415; 74176; 80053; 81001; 83690; 85025; 96372; 99284; A9270-GY; J2270; J3410

== ENCOUNTER 2022-11-28 02:49 | Emergency (ER) | payer MEDICAID ==
[2022-11-28] MEDS ORDERED: Sodium Chloride 0.9% 10 ML Syringe FLUSH PRN (03:08)
[2022-11-28] MEDS ORDERED: Ketorolac 30 MG/ML SDV IVPUSH ONE (03:09)
[2022-11-28] MEDS ORDERED: Ondansetron 4 MG/2 ML SDV IVPUSH ONE (03:09)
[2022-11-28] MEDS ORDERED: Sodium Chloride 0.9% 1,000 ML IV SCH (03:15)
[2022-11-28] MEDS: Morphine 4 MG/ML VIAL IVPUSH ONE ×2 (03:20→03:37)
[2022-11-28 03:28] LABS: ESTIMATED GFR 102 mL/min (>60)
[2022-11-28] MEDS ORDERED: HYDROmorphone 2 MG/ML SDV IVPUSH ONE (03:41)
== END 2022-11-28 04:54 | disposition home or self-care (01) ==
LOC: FB.ED 02:49
DX: K80.20 Calculus of gallbladder without cholecystitis without obstruction (principal); Z79.899 Other long term (current) drug therapy; Z86.16 Personal history of COVID-19
CPT/HCPCS: 36415; 80053; 82150; 83690; 85025; 96361; 96374; 96375; 99283; 99284; J1170; J1885; J2270; J2405; J7030

== ENCOUNTER 2022-12-15 07:13 | Day surgery (SDC) | payer MEDICAID ==
[2022-12-15] MEDS ORDERED: Ondansetron 4 MG/2 ML SDV IVPUSH ONE (07:14)
[2022-12-15] MEDS ORDERED: Midazolam 1 MG/ML 2 ML SDV IV ONE (07:14)
[2022-12-15] MEDS ORDERED: Propofol 200 MG/20 ML SDV IV ONE (07:14)
[2022-12-15] MEDS ORDERED: fentaNYL 100 MCG/2 ML SDV IV ONE (07:14)
[2022-12-15] MEDS ORDERED: Lactated Ringers 1,000 ML IV ONE (07:14)
[2022-12-15] MEDS ORDERED: HYDROmorphone 2 MG/ML SDV IV ONE (07:14)
[2022-12-15] MEDS ORDERED: Rocuronium 100 MG/10 ML MDV IV ONE (07:14)
[2022-12-15] MEDS ORDERED: Sugammadex Sodium 200 MG/2 ML VIAL IV ONE (07:14)
[2022-12-15] MEDS ORDERED: Scopolamine 1.5 MG Transdermal Patch TOP ONE (07:14)
[2022-12-15] MEDS ORDERED: Ketorolac 30 MG/ML SDV IVPUSH ONE (07:14)
[2022-12-15] MEDS ORDERED: ceFAZolin 1 GM in Sodium Chloride 0.9% 50 ML IV ONE (07:15)
[2022-12-15] MEDS ORDERED: ceFAZolin 1 GM Vial IVPUSH ONE (07:15)
[2022-12-15] MEDS ORDERED: Lactated Ringers 1,000 ML IV SCH (07:15)
[2022-12-15] MEDS ORDERED: Sodium Chloride 0.9% 10 ML Syringe FLUSH PRN (07:15)
[2022-12-15] MEDS ORDERED: Morphine 2 MG/ML SYRINGE IVPUSH PRN (10:50)
== END 2022-12-15 13:37 | disposition home or self-care (01) ==
LOC: FB.SDS 07:13
PROVIDERS: ATTEND Surgery
DX: K80.12 Calculus of gallbladder with acute and chronic cholecystitis without obstruction (principal); F17.210 Nicotine dependence, cigarettes, uncomplicated
CPT/HCPCS: 00790; 47562; 81025; 88304; A9270; J1170; J1885; J2250; J2405; J2704; J3010; J3490; J7120; J0690

== ENCOUNTER 2024-03-27 23:29 | Emergency (ER) | payer MEDICAID ==
[2024-03-27] MEDS: Ketorolac 30 MG/ML SDV IM ONE (23:54)
== END 2024-03-28 00:33 | disposition home or self-care (01) ==
LOC: FB.ED 23:29
DX: T14.8XXA Other injury of unspecified body region, initial encounter (principal); Z79.899 Other long term (current) drug therapy; X50.1XXA Overexertion from prolonged static or awkward postures, initial encounter
CPT/HCPCS: 96372; 99282; J1885

== ENCOUNTER 2024-04-24 13:43 | Emergency (ER) | payer MEDICAID | END 2024-04-24 16:05 | disposition home or self-care (01) | LOC: FB.ED 13:43 | DX: S46.912A Strain of unspecified muscle, fascia and tendon at shoulder and upper arm level, left arm, initial encounter (principal); S93.402A Sprain of unspecified ligament of left ankle, initial encounter; Z86.16 Personal history of COVID-19; X58.XXXA Exposure to other specified factors, initial encounter; Y99.0 Civilian activity done for income or pay | CPT/HCPCS: 73030-LT; 73610-LT; 99283 ==

== ENCOUNTER 2024-12-07 11:17 | Emergency (ER) | payer SELFPAY ==
[2024-12-07 12:00] LABS: BASOPHILS PERCENT AUTO 0.5 % (0.2-1.5); EOSINOPHILS ABSOLUTE AUTO 0.2 x10-3/uL (0.0-0.8); EOSINOPHILS PERCENT AUTO 2.3 % (0.6-8.1); HEMATOCRIT 36.1 % (34.2-48.2); HEMOGLOBIN 12.2 g/dL (11.4-15.5); LYMPHOCYTES ABSOLUTE AUTO 0.8 x10-3/uL (1.0-4.4); LYMPHOCYTES PERCENT AUTO 12.3 % (18.4-52.1); MEAN CORPUSCULAR HEMOGLOBIN 29.5 pg (23.9-33.9); MEAN CORPUSCULAR HGB CONC 33.8 g/dL (31.9-34.8); MEAN CORPUSCULAR VOLUME 87.4 fL (76.7-100.5); MEAN PLATELET VOLUME 7.2 fL (7.1-12.4); MONOCYTES ABSOLUTE AUTO 0.5 x10-3/uL (0.3-1.0); MONOCYTES PERCENT AUTO 7.2 % (4.4-15.7); NEUTROPHILS ABSOLUTE AUTO 5.1 x10-3/uL (1.5-6.3); NEUTROPHILS PERCENT AUTO 77.8 % (30.8-76.2); PLATELET COUNT,PLT 206 x10(3)uL (151-488); RED BLOOD CELL COUNT 4.13 x10(6)uL (3.60-5.20); WHITE BLOOD CELL COUNT,WBC 6.5 x10-3/uL (3.0-10.3)
[2024-12-07] MEDS: Sodium Chloride 0.9% 1,000 ML IV SCH (12:00)
[2024-12-07] MEDS: Ondansetron 4 MG/2 ML SDV IVPUSH ONE (12:00)
[2024-12-07 12:02] LABS: BLOOD UREA NITROGEN,BUN 8 mg/dL (7-18); BUN/CREATININE RATIO 11.4 (9-20); CALCIUM 8.4 mg/dL (8.6-10.2); CARBON DIOXIDE,CO2 26 mmol/L (21-32); CHLORIDE,CL 103 mmol/L (100-110); CREATININE 0.7 mg/dL (0.55-1.02); EST CRCL DRUG DOSING (CG) 87.87 mL/min; ESTIMATED GFR 119 mL/min (>60); GLUCOSE RANDOM 75 mg/dL (80-116); POTASSIUM,K 3.8 mmol/L (3.5-5.3); SODIUM,NA 137 mmol/L (135-145)
[2024-12-07 12:14] LABS: BILIRUBIN,URINE SMALL (NEGATIVE); GLUCOSE,URINE NORMAL (NORMAL); KETONES,URINE NEGATIVE (NEGATIVE); LEUKOCYTE ESTERASE,URINE MODERATE (NEGATIVE); NITRITE,URINE NEGATIVE (NEGATIVE); OCCULT BLOOD,URINE NEGATIVE (NEGATIVE); PROTEIN,URINE 30 mg/dL (NEGATIVE); UROBILINOGEN,URINE NORMAL (NEGATIVE)
[2024-12-07 12:27] LABS: APPEARANCE,URINE SLIGHTLY CLOUDY (CLEAR); COLOR,URINE YELLOW (YELLOW)
[2024-12-07 12:46] LABS: BACTERIA,URINE MANY (NS); SQUAMOUS EPITHELIAL CELLS,UR MODERATE (NS,R,O); WBC,URINE 0-5 (0-5)
== END 2024-12-07 13:00 | disposition home or self-care (01) ==
LOC: FB.ED 11:17
DX: O21.0 Mild hyperemesis gravidarum (principal); O23.41 Unspecified infection of urinary tract in pregnancy, first trimester; N39.0 Urinary tract infection, site not specified; Z79.899 Other long term (current) drug therapy; Z3A.10 10 weeks gestation of pregnancy
CPT/HCPCS: 36415; 80048; 81001; 85025; 87086; 87088; 87186; 96361; 96374; 99283; 99284-25; J2405; J7030

== ENCOUNTER 2025-05-11 21:37 | Emergency (ER) | payer MEDICAID ==
[2025-05-11] MEDS ORDERED: Nitrofurantoin Monohydrate/Macrocrystalline 100 MG Cap PO ONE (21:38)
[2025-05-11] MEDS ORDERED: Sodium Chloride 0.9% 10 ML Syringe FLUSH PRN (21:49)
[2025-05-11 22:07] LABS: BASOPHILS ABSOLUTE AUTO 0.0 x10-3/uL (0.0-0.1); BASOPHILS PERCENT AUTO 0.3 % (0.2-1.5); EOSINOPHILS ABSOLUTE AUTO 0.1 x10-3/uL (0.0-0.8); EOSINOPHILS PERCENT AUTO 1.2 % (0.6-8.1); LYMPHOCYTES ABSOLUTE AUTO 1.4 x10-3/uL (1.0-4.4); LYMPHOCYTES PERCENT AUTO 14.5 % (18.4-52.1); MEAN PLATELET VOLUME 7.2 fL (7.1-12.4); MONOCYTES ABSOLUTE AUTO 0.7 x10-3/uL (0.3-1.0); MONOCYTES PERCENT AUTO 6.9 % (4.4-15.7); NEUTROPHILS ABSOLUTE AUTO 7.7 x10-3/uL (1.5-6.3); NEUTROPHILS PERCENT AUTO 77.1 % (30.8-76.2); PLATELET COUNT,PLT 215 x10(3)uL (151-488); RED BLOOD CELL COUNT 3.53 x10(6)uL (3.60-5.20); RED CELL DISTRIBUTION WIDTH 14.8 % (12.3-16.5); WHITE BLOOD CELL COUNT,WBC 10.0 x10-3/uL (3.0-10.3)
[2025-05-11 22:11] LABS: BLOOD UREA NITROGEN,BUN 11 mg/dL (7-18); CARBON DIOXIDE,CO2 23 mmol/L (21-32); CHLORIDE,CL 104 mmol/L (100-110); CREATININE 0.6 mg/dL (0.55-1.02); ESTIMATED GFR 123 mL/min (>60); GLUCOSE RANDOM 83 mg/dL (80-116); POTASSIUM,K 3.4 mmol/L (3.5-5.3); SODIUM,NA 136 mmol/L (135-145)
[2025-05-11 22:17] LABS: A/G RATIO 0.6; ALANINE AMINOTRANSFERASE,ALT 19 U/L (12-36); ASPARTATE AMNIOTRANSFERASE,AST 19 IU/L (5-25); BILIRUBIN TOTAL 0.3 mg/dL (0.1-1.3); PROTEIN TOTAL,TP 6.8 g/dL (6.0-8.0)
[2025-05-11 22:39] LABS: GLUCOSE,URINE NORMAL (NORMAL); OCCULT BLOOD,URINE NEGATIVE (NEGATIVE)
[2025-05-11 22:40] LABS: APPEARANCE,URINE CLEAR (CLEAR)
[2025-05-11 22:42] LABS: SQUAMOUS EPITHELIAL CELLS,UR FEW (NS,R,O)
[2025-05-11] MEDS: Potassium Chloride 20 MEQ Tab.ER PO STA (23:06)
== END 2025-05-11 23:15 | disposition home or self-care (01) ==
LOC: FB.ED 21:37
DX: N39.0 Urinary tract infection, site not specified (principal); E87.6 Hypokalemia; D64.9 Anemia, unspecified; F17.200 Nicotine dependence, unspecified, uncomplicated; Z79.899 Other long term (current) drug therapy; Z86.16 Personal history of COVID-19
CPT/HCPCS: 36415; 80053; 81001; 83690; 85025; 99284; A9270; J7030